=== PATIENT | female | born 1950 | race Caucasian/White ===

== ENCOUNTER 2025-01-07 20:48 | Observation (INO) | payer MEDICARE, SELFPAY ==
[2025-01-07 20:59] VITALS: PULSE 97; RESP 20; O2SAT 96; BMI 25.7
[2025-01-07 21:18] VITALS: BP 101/69; PULSE 104; RESP 18; TEMP 36.9; O2SAT 95
--- NOTE | 2025-01-07 21:35 | XR_ITS ---
Examination: CT abdomen and pelvis without contrast. Coronal 3-D reconstructions. Sagittal 2-D reconstructions. Date and time of exam:January 07, 2025 10:00 PM Indications: Abdominal pain and vomiting beginning this week. CTDI: vol (mGy): 6.60 DLP: (mGycm): 360 Technique: Axial images of the abdomen have been obtained, 3 mm slice thickness Intravenous contrast material has not been administered. Low dose protocols were performed. One or more of the following dose reduction techniques were used; automated exposure control, adjustment of the mA and/or KV according to patient size, use of iterative reconstruction technique. Findings: Large retrocardiac gastric hernia No visualized liver or splenic lesion No definite gallstones. No pancreatic or adrenal mass. No renal or ureteral calculi, no hydronephrosis Aortic calcification no aneurysmal dilatation. No pericecal inflammatory change. Multiple fluid distended small bowel loops in the lower abdomen with free fluid in the lower abdomen No pelvic mass Bladder intact Severe osteopenia with chronic compression L5 Impression: Small bowel obstruction pattern, consider Gastrografin small bowel series follow-up
--- NOTE | 2025-01-07 21:36 | PD.EDRME ---
Rapid Medical Screening Exam RME Arrival date/time: 01/07/25 20:48 This is a case of 74-year-old female who came into the emergency room due to abdominal pain nausea vomiting for 2 days patient was recently treated for UTI and started to Macrobid worsening symptoms this patient decided to sought consult here in the emergency room Chief Complaint: Nausea/Vomiting/Diarrhea Vital signs: Vital Signs Temperature 98.4 F 01/07/25 21:18 Pulse Rate 104 H 01/07/25 21:18 Respiratory Rate 18 01/07/25 21:18 Blood Pressure 101/69 01/07/25 21:18 Pulse Oximetry (%) 95 01/07/25 21:18 Oxygen Delivery Method Room Air 01/07/25 21:18
[2025-01-07 21:53] LABS: Basophils # (Auto) 0.1 Thou/mm3 (0.0-0.2); Basophils % (Auto) 0 % (0-2.5); Eosinophils # (Auto) 0.1 Thou/mm3 (0.0-0.5); Eosinophils % (Auto) 1 % (0-10); Hematocrit 35.7 % (36.0-46.0); Hemoglobin 11.9 g/dL (12.0-16.0); Immature Granulocytes Auto 0.08 Thou/mm3 (0.00-0.00); Lymphocytes # (Auto) 1.7 Thou/mm3 (1.0-4.8); Lymphocytes % (Auto) 12 % (10-50); Mean Corpuscular HGB Conc 33.3 g/dl (31.0-37.0); Mean Corpuscular Hemoglobin 28.1 pg (25.0-35.0); Mean Corpuscular Volume 84 fL (80-100); Monocytes # (Auto) 0.7 Thou/mm3 (0.0-0.8); Monocytes % (Auto) 5 % (0-12); Neutrophils # (Auto) 11.3 Thou/mm3 (1.8-7.7); Neutrophils % (Auto) 81 % (37-80); Nucleated Red Blood Cell # 0.00 Thou/mm3 (0.00-0.00); Nucleated Red Blood Cell % 0 /100 WBC (0); Platelet Count 308 Thou/mm3 (140-440); RDW Standard Deviation 42.2 fL (36.4-46.3); Red Blood Count 4.23 Miln/mm3 (4.00-5.20); White Blood Count 14.0 Thou/mm3 (3.6-11.0)
[2025-01-07 22:28] LABS: Alanine Aminotransferase < 7 U/L (10-49); Albumin, Serum 4.2 gm/dL (3.4-4.8); Albumin/Globulin Ratio 2.1 (1.2-2.2); Alkaline Phosphatase 60 U/L (46-116); Amylase 70 U/L (30-118); Anion Gap 11 (7-16); Aspartate Amino Transferase 13 U/L (0-34); BUN/Creatinine Ratio 18 Ratio (12-20); Bilirubin,Total 0.4 mg/dL (0.3-1.2); Blood Urea Nitrogen 20 mg/dL (9-23); Calcium 9.2 mg/dL (8.3-10.6); Calcium (Corrected) 9.2 mg/dL (8.5-10.1); Carbon Dioxide 26.0 mMol/L (20.0-31.0); Chloride 101 mMol/L (98-107); Creatinine (Component) 1.1 mg/dL (0.6-1.3); Estimated Creatinine Clearance 38.9 mL/min (>60); Globulin 2.0 gm/dL (2.3-3.5); Glucose 128 mg/dL (74-106); Osmolality,Calculated 280 (275-295); Potassium 3.4 mMol/L (3.4-5.1); Sodium 138 mMol/L (136-145); Total Protein 6.2 gm/dL (5.7-8.2); eGFR 53 See Note
[2025-01-07 23:26] VITALS: BP 99/47; PULSE 83; RESP 19; TEMP 36.6; O2SAT 99
--- NOTE | 2025-01-07 23:38 | EDNOTE_ITS ---
Nausea/Vomit./Diarrhea-RME/HPI General Chief complaint: Nausea/Vomiting/Diarrhea Stated complaint: VOMITTING Time Seen by Provider: 01/07/25 21:39 Arrival date/time: 01/07/25 20:48 RME / HPI RME / HPI Narrative: 01/07/25 20:48 This is a case of 74-year-old female who came into the emergency room due to abdominal pain nausea vomiting for 2 days patient was recently treated for UTI and started to Macrobid worsening symptoms this patient decided to sought consult here in the emergency room Dr. Tom?s Main ED Evaluation: 74yo female who was treated for UTI approx. 1 week [employer] who subsequently developed several bouts of nausea and vomiting that has been persistent throughout the week. No reported diarrhea and notes associated diffuse abdominal pain. Reported fever and chills. Reports resolution of dysuria while on antibiotics. PMH includes HTN, previous TIA. Denies DM or previous OK. Does report history of tachyarrhythmia. PSH includes hysterectomy. Nondrinker, nonsmoker, no illicit drug abuse. NKDA. Related Data Allergies Allergy/AdvReac Type Severity Reaction Status Date / Time BLOOD TRANSFUSION REACTION Allergy Unknown Uncoded 12/01/02 13:35 NKA Allergy Unknown Uncoded 12/01/02 13:35 No Known Allergies Allergy Uncoded 12/01/02 12:45 Review of Systems Review of Systems Systems Reviewed: All systems reviewed, normal except as documented Past Medical History Past Medical History NEUROLOGIC: Negative Neurological Disorders CARDIAC: Positive Hypertension; Negative Congestive Heart Failure RESPIRATORY: Negative Chronic Obstructive Pulmonary Disease (COPD) GASTROINTESTINAL: Negative Gastrointestinal Disorders GENITOURINARY: Negative Genitourinary Disorders or Renal Disease MUSCULOSKELETAL: Positive Osteoporosis ENDOCRINE: Negative Endocrine Disorders, Diabetes Mellitus Type 1 or Diabetes Mellitus Type 2 HEMATOLOGIC: Positive Anemia OTHER HISTORY: Negative Hospitalization, Autoimmune Disease, Down Syndrome, Developmental Delay, Shingles, Falls, Anesthesia Reactions or Cancer Surgical History SURGICAL: Positive Hysterectomy (total) Social History SMOKING STATUS: Never smoker ED Exam Narrative Physical exam: GENERAL APPEARANCE: alert and oriented x 4, well-developed, well-nourished, complains of generalized abdominal discomfort, in mild distress VITALS: All vitals were reviewed and the pulse ox is 99% on room air, which is normal according to my interpretation. HEENT: Normocephalic, atraumatic; pupils equal, round, reactive to light; EOMI; mucous membranes pink, moist; oropharynx clear NECK: Supple LUNGS: CTABL; no wheezes, no rales, no rhonchi HEART: Regular rate, regular rhythm; normal S1, S2; no murmurs ABDOMEN: non distended; no hypertympany; soft, mild diffuse tenderness, no guarding; no gross peritoneal findings BACK: no CVA tenderness EXTREMITIES: atraumatic; no edema NEUROLOGIC: awake; alert and oriented x4; cranial nerves II-XII grossly intact; no focal sensory or motor deficits PSYCHIATRIC: appropriate mood and affect SKIN: warm, dry, normal color; no rashes Course Quality Measures none Orders Category Date Time Status Admit to Inpatient Status Routine Admission 01/08/25 02:51 Active Patient Condition Routine Admission 01/08/25 02:51 Ordered Insert NG / OG tube NOW Care 01/08/25 00:13 Active NPO NOW Care 01/08/25 02:53 Active Notify provider NEEDED Care 01/08/25 02:51 Active Obtain weight NOW Care 01/08/25 02:51 Active Consult to General Surgery Stat Cons 01/08/25 02:53 Ordered Diet NPO (NOW) Diet 01/08/25 02:[address] abdomen pelvis wo con Stat Exams 01/07/25 21:35 Completed XR chest 1V post procedure Stat Exams 01/08/25 02:40 Taken Amylase Stat Lab 01/07/25 21:42 Completed CBC AM DRAW Lab 01/08/25 05:00 Ordered CBC AM DRAW Lab 01/09/25 05:00 Ordered CBC AM DRAW Lab 01/10/25 05:00 Ordered CBC AM DRAW Lab 01/11/25 05:00 Ordered CBC Stat Lab 01/07/25 21:42 Completed CMP [Comprehensive Metabolic Panel] AM DRAW Lab 01/08/25 05:00 Ordered CMP [Comprehensive Metabolic Panel] AM DRAW Lab 01/09/25 05:00 Ordered CMP [Comprehensive Metabolic Panel] AM DRAW Lab 01/10/25 05:00 Ordered CMP [Comprehensive Metabolic Panel] AM DRAW Lab 01/11/25 05:00 Ordered Comprehensive Metabolic Panel Stat Lab 01/07/25 21:42 Completed Magnesium AM DRAW Lab 01/08/25 05:00 Ordered Magnesium AM DRAW Lab 01/09/25 05:00 Ordered Magnesium AM DRAW Lab 01/10/25 05:00 Ordered Magnesium AM DRAW Lab 01/11/25 05:00 Ordered Phosphorous AM DRAW Lab 01/08/25 05:00 Ordered Phosphorous AM DRAW Lab 01/09/25 05:00 Ordered Phosphorous AM DRAW Lab 01/10/25 05:00 Ordered Phosphorous AM DRAW Lab 01/11/25 05:00 Ordered Urinalysis Stat Lab 01/08/25 00:27 Completed Acetaminophen Ivpb [Ofirmev Inj] Med 01/08/25 02:51 Active 1,000 mg in 100 ml IV Q6HR Acetaminophen Tab [Tylenol Tab] Med 01/08/25 02:51 Active 650 mg PO Q6H PRN Dextrose 5%-Ns [D5-Ns] 500 ml Med 01/08/25 03:00 Active IV 80 mls/hr Heparin Inj Med 01/08/25 09:00 Active 5,000 unit SC BID Lidocaine 2% Pf 5 ml [Xylocaine 2% Pf 5 ml] Med 01/08/25 00:30 Discontinued 8 ml INFL X1 ONE Morphine* Inj Med 01/08/25 02:51 Active 2 mg IVP Q6HR PRN Morphine* Inj Med 01/08/25 00:06 Discontinued 4 mg IVP X1 ONE Ondansetron Inj [Zofran Inj] Med 01/08/25 02:51 Active 4 mg IVP Q6H PRN Ondansetron Inj [Zofran Inj] Med 01/08/25 00:06 Discontinued 4 mg IVP X1 ONE Pantoprazole Inj [Protonix Inj] Med 01/08/25 09:00 Active 40 mg IVP QDAY Sodium Chloride 0.9% 1000 ml [Ns] 1,000 ml Med 01/08/25 00:06 Discontinued IV 999 mls/hr cefTRIAXone/D5w 1gm IV premix [Rocephin/D5w 1gm IV Med 01/08/25 00:50 Discontinued premix] 1 gm in 50 ml IV X1 Code Status Routine Oth 01/08/25 02:51 Ordered Vital Signs Vital signs: Vital Signs Temperature 98.4 F 01/07/25 21:18 Pulse Rate 104 H 01/07/25 21:18 Respiratory Rate 18 01/07/25 21:18 Blood Pressure 101/69 01/07/25 21:18 Pulse Oximetry (%) 95 01/07/25 21:18 Oxygen Delivery Method Room Air 01/07/25 21:18 Nausea/Vomiting/Diarrhea MDM Narrative MDM Narrative:: Scribe Attestation: 01/07/25 Ria Dixon am scribing for and in the presence of Dr. Tom. 74yo female who was treated for UTI approx. 1 week [employer] who subsequently developed several bouts of nausea and vomiting that has been persistent throughout the week. No reported diarrhea and notes associated diffuse abdominal pain. Please see PE findings. Lab markers demonstrated elevated WBC count 14, mild anemia Hgb 11.9, slight left shift without bandemia. Chemistries demonstrate slightly reduced eGFR 53. Patient placed on secured entrance monitor, notably mildly hypotensive upon arrival, hydrated with normal saline, and given low dose narcotic analgesics/antiemetics with [id number] clinical improvement. Patient referred for CT abdomen pelvis, which demonstrated multiple fluid distended small bowel loops consistent with small bowel obstruction. Patient underwent NG tube placement after nebulized lidocaine treatment. Hospitalist was consulted for admission. Dx: SBO, UTI Patient data External records reviewed:: [facility] previous records (Per chart review, patient has no relevant previous ED visits.) Clinical information provided by:: patient Social determinants that could affect healthcare access:: none Patient has the following chronic illnesses:: HTN How is presenting disease/condition affected by chronic disease/condition?: uneffected by Evaluation data The following diagnostics were reviewed and interpreted by me:: lab results and radiology exam(s) Lab and/or radiology exams considered but not ordered:: none Interpretation Summary: [facility] Report Signed Patient: LUIS ALBERTO VILLALOBOS Record#: [id number] Birthdate: 1950 Age/Sex: 74 / F Location: [facility] Attending Dr: Ordering Physician: Bria Vargas Date of Service: 01/07/25 Procedure(s): CT abdomen pelvis wo con Accession Number(s): [id number] cc: Kaden Le MD; Antonio Farmer MD; Bria Vargas~ Examination: CT abdomen and pelvis without contrast. Coronal 3-D reconstructions. Sagittal 2-D reconstructions. Date and time of exam:January 07, 2025 10:00 PM Indications: Abdominal pain and vomiting beginning this week. CTDI: vol (mGy): 6.60 DLP: (mGycm): 360 Technique: Axial images of the abdomen have been obtained, 3 mm slice thickness Intravenous contrast material has not been administered. Low dose protocols were performed. One or more of the following dose reduction techniques were used; automated exposure control, adjustment of the mA and/or KV according to patient size, use of iterative reconstruction technique. Findings: Large retrocardiac gastric hernia No visualized liver or splenic lesion No definite gallstones. No pancreatic or adrenal mass. No renal or ureteral calculi, no hydronephrosis Aortic calcification no aneurysmal dilatation. No pericecal inflammatory change. Multiple fluid distended small bowel loops in the lower abdomen with free fluid in the lower abdomen No pelvic mass Bladder intact Severe osteopenia with chronic compression L5 Impression: Small bowel obstruction pattern, consider Gastrografin small bowel series follow-up Dictated By: Antonio Farmer MD Signed By: <Electronically signed by Antonio Farmer MD in OV> 01/07/25 4733 Medications / Prescriptions Medications / Prescriptions considered but not ordered:: none Medication administrations:: Medication Administration History Acetaminophen (Acetaminophen 325 Mg Tablet) 650 mg PO Q6H PRN PRN Reason: Fever >100.4 Stop: 02/07/25 02:50 Heparin Sodium (Porcine) (Heparin Sod Inj 5000 Unit/Ml Vial) 5,000 unit SC BID [facility] Stop: 01/22/25 08:59 Acetaminophen (Ofirmev Inj) 1,000 mg in 100 mls @ 250 mls/hr IV Q6HR PRN PRN Reason: Fever >100.4 or Pain 1-3 Dextrose/Sodium Chloride (D5-Ns) 500 mls @ 80 mls/hr IV .Q6H15M [facility] Stop: 02/07/25 02:59 Morphine Sulfate (Morphine Sulf Inj 4 Mg/Ml Vial) 2 mg IVP Q6HR PRN PRN Reason: Pain 4-10 Stop: 01/13/25 02:50 Ondansetron HCl (Ondansetron Inj 2 Mg/Ml Inj 2 Ml) 4 mg IVP Q6H PRN; Protocol PRN Reason: NAUSEA OR VOMITING Stop: 02/07/25 02:50 Pantoprazole Sodium (Pantoprazole Inj 40 Mg Vial) 40 mg IVP QDAY [facility] Stop: 02/07/25 08:59 Discontinued Medications Sodium Chloride (Ns) 1,000 mls @ 999 mls/hr IV .Q1H1M ONE Stop: 01/08/25 01:06 Last Admin: 01/08/25 01:50 Dose: 999 mls/hr Documented By: JOY Ceftriaxone Sodium/Dextrose (Rocephin/D5w 1gm Iv Premix) 1 gm in 50 mls @ 100 mls/hr IV X1 ONE Stop: 01/08/25 01:19 Last Admin: 01/08/25 02:05 Dose: 100 mls/hr Documented By: JOY Lidocaine HCl (Lidocaine Inj Pf 2% 5 Ml Vial) 8 ml INFL X1 ONE Stop: 01/08/25 00:31 Last Admin: 01/08/25 01:04 Dose: 8 ml Documented By: JOY Morphine Sulfate (Morphine Sulf Inj 4 Mg/Ml Vial) 4 mg IVP X1 ONE Stop: 01/08/25 00:07 Last Admin: 01/08/25 01:52 Dose: 4 mg Documented By: JOY Ondansetron HCl (Ondansetron Inj 2 Mg/Ml Inj 2 Ml) 4 mg IVP X1 ONE; Protocol Stop: 01/08/25 00:07 Last Admin: 01/08/25 01:51 Dose: 4 mg Documented By: JOY see above Consultations Consultation(s) initiated? (list below): Yes Consultation #1 (Physician, Specialty, Details): Discussed case with the resident physician, attending Dr. Means from Hospitalist service regarding admission. Discussed patients ED course, exam findings, labs, and radiology results. The Hospitalist agrees to accept the patient for admission. Time: 00:48 Diagnosis Nausea Differential Diagnosis: food poisoning, gastroenteritis, drug-induced nausea and vomiting, dehydration and other (SBO, ileus, electrolyte abnormality) Most likely diagnosis given after review of the tests above:: see clinical impression below Admission Indicated Admission indicated?: indicated Admission Request Was there a request for admission?: Yes Admission Attestation Admission request attestation: Discussed case with [] from Hospitalist service regarding admission. Discussed patients ED course, exam findings, labs, and radiology results. The Hospitalist [agrees,declines] to accept the patient for admission. Disposition Plan Disposition Plan: Admit Discharge Plan Plan Patient Disposition: Admit Acute Care w/in Hospital Prescriptions/Referrals Referrals: Kaden Le MD [Primary Care Provider, Family Practice] - In 1 week Problem List Clinical Impression: Small bowel obstruction, UTI (urinary tract infection) Patient/Caregiver Discharge Instructions Print Language: Venezuelan Stand Alone Forms: [employer] Award Info., Patient Portal Info Letter
[2025-01-08] VITALS (9 sets, daily range): BP systolic 94–117; BP diastolic 56–68; PULSE 70–82; RESP 16–19; TEMP 36.3–36.9; O2SAT 95–100; BMI 25.9
[2025-01-08 00:30] LABS: Collection Type, Urine Clean Catch
[2025-01-08 00:44] LABS: Amorphous Crystals,Urine Present (Absent); Bacteria,Urine Rare; Bilirubin,Urine Negative (Negative); Blood,Urine Negative (Negative); Clarity,Urine Turbid (Clear/Hazy); Color,Urine Yellow (Lt Yel-Yel); Glucose, Urine Negative (Negative); Hyaline Casts,Urine 2 /hpf (0-1); Ketones,Urine Negative (Negative); Leukocyte Esterase,Urine Positive (Negative); Nitrite,Urine Negative (Negative); PH,Urine 5.5 (5.0-7.0); Protein,Urine Trace (Neg - Trace); RBC,Urine 15 /hpf (0-3); Specific Gravity,Urine 1.021 (1.001-1.035); Squamous Epithelial Cell,Urine 6 /hpf (0-5); Urobilinogen,Urine Negative mg/dL (0.0-1.0); WBC,Urine 127 /hpf (0-5)
[2025-01-08] MEDS: LIDOCAINE INJ PF 2% 5 ML VIAL 8 ML INFL (01:04)
[2025-01-08] MEDS: SODIUM CHLORIDE 0.9% 1000 ML 1,000 ML 999 ML IV (01:50)
[2025-01-08] MEDS: ONDANSETRON INJ 2 MG/ML INJ 2 ML 4 MG IVP (01:51)
[2025-01-08] MEDS: MORPHINE SULF INJ 4 MG/ML VIAL IVP (01:52)
[2025-01-08] MEDS: cefTRIAXone/D5w 1gm IV premix 1 GM/50 ML BAG IV (02:05)
--- NOTE | 2025-01-08 02:40 | XR_ITS ---
Examination: AP chest single view Technique one AP portable upright chest single view Date and time: January 08, 2025, 0248 hrs. Indications: Orogastric tube placement today. Findings: Orogastric tube sidehole is just beyond the GE junction Normal heart size Atelectasis in the left lower lobe, mild No pneumonia or pulmonary edema Impression: Advance the orogastric tube 4 cm
--- NOTE | 2025-01-08 02:56 | ESHP_ITS ---
Documentation for date of: 01/08/25 [facility] History of Present Illness History of present illness: This is a 74-year-old female with PMHx of HTN, tachycardia, HLD, osteoporosis, chronic anemia, severe endometriosis s/p oophorectomy and hysterectomy, presented to ED with abdominal pain. Symptoms started 2 days ago, with gradual onset abdominal distention, and abdominal pain. She states over the last week she has been dehydrated, not drinking as much fluids as possible. Over the last 2 days she has several episode of vomiting stomach content, nonbloody. In addition to nonbloody, brown diarrhea this morning. And has been unable to tolerate oral intake over the last few days. She was treated for UTI recently, completed a full course of ANTIBIOTICS. Currently asymptomatic without dysuria or urinary urgency or frequency. Currently denies headache, fever, chills, fall or trauma, chest pain, shortness of breath, palpitation, generalized weakness, or urinary symptoms. She has a distant history of oophorectomy followed by hysterectomy secondary to endometriosis and incidental appendectomy. Past Medical History: * As above. Past Surgical History: * Oophorectomy, appendectomy, hysterectomy. Medications: * METOPROLOL, tartrate 50 mg daily, LOSARTAN ? HYDROCHLOROTHIAZIDE 200-125 mg daily, SIMVASTATIN 20 mg daily. Allergies: * Allergy to blood transfusions (severe weakness) Family History: * Noncontributory. Social History: * , lives with her boyfriend. Had 2 children through natural . * Occasional alcohol use, denies drug or tobacco use. ED Course: * Afebrile, BP 101/69, HR 104, satting well on room air. * WBC 14, CBC 11.9 around baseline, PLT 308. * CHEM panel remarkable for GFR 53, creatinine 1.1, BUN 20, GLUCOSE 128. * Normal liver function, electrolyte. * CT abdomen showed small bowel obstruction better. Reason for admission: Refractory nausea and vomiting secondary to SBO, requiring admission for decompression followed by GASTROGRAFIN study. Exam Vital Signs Temp Pulse Resp BP Pulse Ox O2 Del Method 98.2 F 77 18 117/63 95 Room Air 01/08/25 02:13 01/08/25 02:13 01/08/25 02:13 01/08/25 02:13 01/08/25 02:13 09/13/25 23:26 Narrative Exam GENERAL * Normal appearing female, in mild distress secondary to nausea and vomiting. HEENT * NCAT.?DIMAS. Oral mucosa is moist. Patent Nares NECK * Supple, nontender, no JVD. CHEST * RRR, no m/g/r * CTAB, no w/r/r, symmetrical expansion. ABDOMEN * Soft, mildly distended, mildly tender throughout. * No guarding/rebound tenderness/masses. * Bowel sounds presents EXTREMITIES * No edema/cyanosis.? SKIN * Warm and dry, no jaundice/rashes. NEUROMUSCULAR * No lumbar or midline, no CVA, no paraspinal muscle spasm or tenderness. * Moves all 4 extremities well, with full ROM and good CSM. * GARCIA x4, CN II-XII grossly intact. * No focal neurologic deficits. PSYCHIATRY * Normal mood and affect, cooperative, no SI or HI or hallucinations Results: Labs 01/08/25 04:35 01/08/25 04:35 Labs: Short CBC 01/07/25 Range/Units 21:42 WBC 14.0 H (3.6-11.0) Thou/mm3 Hgb 11.9 L (12.0-16.0) g/dL Hct 35.7 L (36.0-46.0) % Plt Count 308 (140-440) Thou/mm3 BMP 01/07/25 21:42 Sodium 138 Potassium 3.4 Chloride 101 Carbon Dioxide 26.0 BUN 20 Creatinine 1.1 Glucose 128 H Calcium 9.2 Liver Function 01/07/25 Range/Units 21:42 Total Bilirubin 0.4 (0.3-1.2) mg/dL AST 13 (0-34) U/L ALT < 7 L (10-49) U/L Alkaline Phosphatase 60 (46-116) U/L Albumin 4.2 (3.4-4.8) gm/dL Urine 01/08/25 Range/Units 00:27 Urine Color Yellow (Lt Yel-Yel) Urine Clarity Turbid A (Clear/Hazy) Urine pH 5.5 (5.0-7.0) Ur Specific [place] 1.021 (1.001-1.035) Urine Protein Trace (Neg - Trace) Urine Glucose (UA) Negative (Negative) Quality Measures Quality Measures none Advance care planning discussed with:: patient Medications Home Medications and Allergies Allergies Allergy/AdvReac Type Severity Reaction Status Date / Time BLOOD TRANSFUSION REACTION Allergy Unknown Uncoded 12/01/02 13:35 NKA Allergy Unknown Uncoded 12/01/02 13:35 No Known Allergies Allergy Uncoded 12/01/02 12:45 Visit Medications Acetaminophen (Acetaminophen 325 Mg Tablet) 650 mg PO Q6H PRN PRN Reason: Fever >100.4 Stop: 02/07/25 02:50 Heparin Sodium (Porcine) (Heparin Sod Inj 5000 Unit/Ml Vial) 5,000 unit SC BID [facility] Stop: 01/22/25 08:59 Acetaminophen (Ofirmev Inj) 1,000 mg in 100 mls @ 250 mls/hr IV Q6HR PRN PRN Reason: Fever >100.4 or Pain 1-4 Dextrose/Sodium Chloride (D5-Ns) 500 mls @ 80 mls/hr IV .Q6H15M [facility] Stop: 02/07/25 02:59 Morphine Sulfate (Morphine Sulf Inj 4 Mg/Ml Vial) 2 mg IVP Q6HR PRN PRN Reason: Pain 4-10 Stop: 01/13/25 02:50 Ondansetron HCl (Ondansetron Inj 2 Mg/Ml Inj 2 Ml) 4 mg IVP Q6H PRN; Protocol PRN Reason: NAUSEA OR VOMITING Stop: 02/07/25 02:50 Pantoprazole Sodium (Pantoprazole Inj 40 Mg Vial) 40 mg IVP QDAY [facility] Stop: 02/07/25 08:59 Discontinued Medications Sodium Chloride (Ns) 1,000 mls @ 999 mls/hr IV .Q1H1M ONE Stop: 01/08/25 01:06 Last Admin: 01/08/25 01:50 Dose: 999 mls/hr Ceftriaxone Sodium/Dextrose (Rocephin/D5w 1gm Iv Premix) 1 gm in 50 mls @ 100 mls/hr IV X1 ONE Stop: 01/08/25 01:19 Last Admin: 01/08/25 02:05 Dose: 100 mls/hr Lidocaine HCl (Lidocaine Inj Pf 2% 5 Ml Vial) 8 ml INFL X1 ONE Stop: 01/08/25 00:31 Last Admin: 01/08/25 01:04 Dose: 8 ml Morphine Sulfate (Morphine Sulf Inj 4 Mg/Ml Vial) 4 mg IVP X1 ONE Stop: 01/08/25 00:07 Last Admin: 01/08/25 01:52 Dose: 4 mg Ondansetron HCl (Ondansetron Inj 2 Mg/Ml Inj 2 Ml) 4 mg IVP X1 ONE; Protocol Stop: 01/08/25 00:07 Last Admin: 01/08/25 01:51 Dose: 4 mg Assessment & Plan Plan This is a 74-year-old female with PMHx of HTN, tachycardia, HLD, osteoporosis, chronic anemia, severe endometriosis s/p oophorectomy and hysterectomy, presented to ED with abdominal pain, admitted for SBO. Small bowel obstruction Intractable N/V/ Abdominal pain Presents with 2 days of abdominal pain, nausea, vomiting. Had mild distention and diffuse mild tenderness of the abdomen on exam. Previous similar episodes. Last bowel movement was this morning and was watery, brown, nonbloody. CT showed SBO. WBC 14, likely reactive. No signs or symptoms of bowel ischemia. Continues to feel nauseous despite ANTIEMETICS. Will start with decompression, allow some time before GASTROGRAFIN study. ? Bowel rest ? NGT intermittent low suction ? GASTROGRAFIN to start at 11:00 AM ? General Surgery consulted ? Continue D5-NS maintenance at 80 cc/or HTN Tachycardia HLD History above, managed with home meds. Currently normotensive, HR within normal limits. ? Resume oral home meds when able Chronic anemia Hgb 11.9 around baseline. She takes folate and iron supplements daily. Has severe allergic reaction to blood transfusion, with generalized weakness. ? Resume home medication on discharge ? Do not anticipate need for transfusion at this time ? Daily labs Complicated UTI Treated for UTI, occasional dysuria with urgency. UA noted for WBCs seen in UA, will administer another dose of ANTIBIOTICS. - Completed outpatient po Nitrufurantoin ? Received 1 dose of CEFTRIAXONE in ED ? Will give one-time CEFTRIAXONE tomorrow CKD stage IIIa Admission GFR 53 oh, around baseline. Creatinine 1.1, BUN 20. Currently does not have a PCP, not following with [facility], denies history of renal failure. ? Renally dose meds, avoid overdiuresis and NEPHROTOXINS ? Daily CMP ? Recommended outpatient follow-up Stated Currently Does Not Have a PCP, Recommended Following up with One of the Residents at the [facility]. Please Provide Contact Information on Discharge. Health maintenance Diet: NPO GI prophylaxis: PROTONIX DVT prophylaxis: HEPARIN subcu Antibiotics: CEFTRIAXONE CODE STATUS: Full code Disposition: Admitted for SBO Case was discussed with attending physician. Antoni Dang DO PGY II This document was transcribed using voice recognition technology. Minor inaccuracies may be present. Attending Provider Attestation/Addendum After examination of the patient and review of the clinical data I feel that this patient needs admission to the hospital for further treatment/evaluation. Plan of care discussed with patient and is in agreement. I Angeles Means MD, attest that I was physically present for hernandez portions of evaluation, and examined patient, labs and imagings and plan of care were discussed with IM residents team, and I agree with the findings and plans documented above.
[2025-01-08 05:16] LABS: Basophils # (Auto) 0.0 Thou/mm3 (0.0-0.2); Basophils % (Auto) 0 % (0-2.5); Eosinophils # (Auto) 0.1 Thou/mm3 (0.0-0.5); Eosinophils % (Auto) 0 % (0-10); Hematocrit 31.5 % (36.0-46.0); Hemoglobin 10.1 g/dL (12.0-16.0); Immature Granulocytes Auto 0.10 Thou/mm3 (0.00-0.00); Lymphocytes # (Auto) 1.8 Thou/mm3 (1.0-4.8); Lymphocytes % (Auto) 15 % (10-50); Mean Corpuscular HGB Conc 32.1 g/dl (31.0-37.0); Mean Corpuscular Hemoglobin 27.9 pg (25.0-35.0); Mean Corpuscular Volume 87 fL (80-100); Monocytes # (Auto) 0.8 Thou/mm3 (0.0-0.8); Monocytes % (Auto) 6 % (0-12); Neutrophils # (Auto) 9.5 Thou/mm3 (1.8-7.7); Neutrophils % (Auto) 78 % (37-80); Nucleated Red Blood Cell # 0.00 Thou/mm3 (0.00-0.00); Nucleated Red Blood Cell % 0 /100 WBC (0); Platelet Count 272 Thou/mm3 (140-440); RDW Standard Deviation 43.9 fL (36.4-46.3); Red Blood Count 3.62 Miln/mm3 (4.00-5.20); White Blood Count 12.2 Thou/mm3 (3.6-11.0)
[2025-01-08] MEDS: DEXTROSE 5%-NS 500 ML 80 ML IV (05:42)
[2025-01-08 05:56] LABS: Alanine Aminotransferase < 7 U/L (10-49); Albumin, Serum 3.6 gm/dL (3.4-4.8); Albumin/Globulin Ratio 1.9 (1.2-2.2); Alkaline Phosphatase 53 U/L (46-116); Anion Gap 9 (7-16); Aspartate Amino Transferase 10 U/L (0-34); BUN/Creatinine Ratio 20 Ratio (12-20); Bilirubin,Total 0.3 mg/dL (0.3-1.2); Blood Urea Nitrogen 24 mg/dL (9-23); Calcium 8.5 mg/dL (8.3-10.6); Calcium (Corrected) 8.8 mg/dL (8.5-10.1); Carbon Dioxide 28.0 mMol/L (20.0-31.0); Chloride 103 mMol/L (98-107); Creatinine (Component) 1.2 mg/dL (0.6-1.3); Estimated Creatinine Clearance 35.8 mL/min (>60); Globulin 1.9 gm/dL (2.3-3.5); Glucose 113 mg/dL (74-106); Magnesium 2.0 mg/dL (1.6-2.6); Osmolality,Calculated 284 (275-295); Phosphorous 4.3 mg/dL (2.4-5.1); Potassium 3.8 mMol/L (3.4-5.1); Sodium 140 mMol/L (136-145); Total Protein 5.5 gm/dL (5.7-8.2); eGFR 48 See Note
--- NOTE | 2025-01-08 06:57 | PC.NURSE ---
called 2x to let them know that pt was asking fro ice chips/sip of water but was unable to get a hold from .
--- NOTE | 2025-01-08 08:00 | XR_ITS ---
Examination: Small bowel series 2 views Technique: AP supine abdomen 1 minute, 1 hour post administration 120 cc Gastrografin Date and time: January 08, 2025, 11:00 AM Indications: Abdominal distention this week Findings: Contrast is present in the colon on the 1 hour film Impression: Negative for small bowel obstruction. No further films are needed.
--- NOTE | 2025-01-08 08:23 | XR_ITS ---
Examination: AP chest single view Technique: Portable AP sitting chest single view Date and time: January 08, 2025, 0828 hrs., Comparison January 08, 2025 0248 hrs. Indications: Reposition orogastric tube. Findings: Orogastric tube tip in the stomach satisfactory position. No significant cardiac enlargement. No aspiration pneumonia. Impression: Orogastric tube tip in the stomach satisfactory position
--- NOTE | 2025-01-08 09:18 | PC.SS ---
Addendum entered by Jocy Weber 01/08/25 14:59: Rounding note: Small bowel series started, NGT tube placed. Will discharge home when medically clear. Original Note: Patient is a 74 White female, reason for visit: SBO. SS met with patient at bedside to complete initial assessment. Role and purpose of today's contact was explained. Patient confirmed her demographic information. Patient stated her primary medical surrogate is her sibling, Kayli Pereira [phone]. Patient explained prior to hospitalization she was independent with both ADLs and ambulation. [facility]. PCP: SONJA, last appt. was 01/03/25. Discharge plan discussed with patient, she is requesting to discharge home when medically clear. Next of kin: Sibling Kayli Pereira [phone] Discharge plan: Home, family to transport.
[2025-01-08] MEDS: HEPARIN SOD INJ 5000 UNIT/ML VIAL SC (09:54)
--- NOTE | 2025-01-08 13:01 | ESPR_ITS ---
<Statement entered by Floyd Shepard MD - 01/08/25 13:12> Overnight admission for SBO. States that last BM was approximately two days ago and symptoms started after she started taking nitrofurantoin for UTI. Denies any nausea or vomiting at this time and has been passing gas since this morning. Small bowel series started and will continue to follow and NGT tube placed. ----- Note reviewed and agree with care plan as documented. Please refer to the note below for further details. Plan discussed with attending physician Dr. Cony Shepard MD PGY-2 Internal Medicine Documentation for date of: 01/08/25 Subjective Subjective Interval history: Patient was seen and examined at bedside. No acute events took place overnight. Patient states that she typically has 3-4 bowel movements daily. However she has not had a bowel movement since yesterday when it was a diarrhea. She complains of pain across her upper abdomen she had vomited prior to presentation to the ED. She completed her course of antibiotics for UTI yesterday. Exam Vital Signs Temp Pulse Resp BP Pulse Ox O2 Del Method 97.5 F 70 19 99/56 L 97 Room Air 01/08/25 08:00 01/08/25 08:00 01/08/25 08:00 01/08/25 08:00 01/08/25 08:00 01/08/25 08:00 Narrative Exam GENERAL * Normal appearing female, in mild distress secondary to nausea and vomiting. HEENT * NCAT. DIMAS. Oral mucosa is moist. Patent Nares NECK * Supple, nontender, no JVD. CHEST * RRR, no m/g/r * CTAB, no w/r/r, symmetrical expansion. ABDOMEN * Soft, mildly distended, mildly tender throughout. * No guarding/rebound tenderness/masses. * Bowel sounds presents EXTREMITIES * No edema/cyanosis.? SKIN * Warm and dry, no jaundice/rashes. NEUROMUSCULAR * No lumbar or midline, no CVA, no paraspinal muscle spasm or tenderness. * Moves all 4 extremities well, with full ROM and good CSM. * GARCIA x4, CN II-XII grossly intact. * No focal neurologic deficits. PSYCHIATRY * Normal mood and affect, cooperative, no SI or HI or hallucinations Objective Labs 01/09/25 04:46 01/09/25 04:46 Labs: Laboratory Results - last 24 hr 01/07/25 01/08/25 01/08/25 21:42 00:27 04:35 WBC 14.0 H 12.2 H RBC 4.23 3.62 L Hgb 11.9 L 10.1 L Hct 35.7 L 31.5 L MCV 84 87 MCH 28.1 27.9 MCHC 33.3 32.1 RDW Std Deviation 42.2 43.9 Plt Count 308 272 D Neut % (Auto) 81 H 78 Lymph % (Auto) 12 15 [place] % (Auto) 5 6 Eos % (Auto) 1 0 Baso % (Auto) 0 0 Neut # (Auto) 11.3 H 9.5 H Lymph # (Auto) 1.7 1.8 [place] # (Auto) 0.7 0.8 Eos # (Auto) 0.1 0.1 Baso # (Auto) 0.1 0.0 Immature Gran # (Auto) 0.08 H 0.10 H Absolute Nucleated RBC 0.00 0.00 Immature Gran % 1 H 1 H Nucleated RBC % 0 0 Sodium 138 140 Potassium 3.4 3.8 Chloride 101 103 Carbon Dioxide 26.0 28.0 Anion Gap 11 9 BUN 20 24 H Creatinine 1.1 1.2 Estim Creat Clear Calc 38.9 L 35.8 L eGFR 53 L 48 L BUN/Creatinine Ratio 18 20 Glucose 128 H 113 H Calculated Osmolality 280 284 Calcium 9.2 8.5 Corrected Calcium 9.2 8.8 Phosphorus 4.3 Magnesium 2.0 Total Bilirubin 0.4 0.3 AST 13 10 ALT < 7 L < 7 L Alkaline Phosphatase 60 53 Total Protein 6.2 5.5 L Albumin 4.2 3.6 D Globulin 2.0 L 1.9 L Albumin/Globulin Ratio 2.1 1.9 Amylase 70 Ur Collection Type Clean Catch Urine Color Yellow Urine Clarity Turbid A Urine pH 5.5 Ur Specific [place] 1.021 Urine Protein Trace Urine Glucose (UA) Negative Urine Ketones Negative Urine Blood Negative Urine Nitrite Negative Urine Bilirubin Negative Urine Urobilinogen (Auto) Negative Ur Leukocyte Esterase Positive Urine RBC 15 H Urine WBC 127 H Ur Squamous Epith Cells 6 H Amorphous Crystals Present A Urine Bacteria Rare Hyaline Casts 2 H Quality Measures Quality Measures none Advance care planning discussed with:: patient Assessment & Plan Assessment Current Active Medications: Generic Name Dose Route Start Last Admin Trade Name Freq PRN Reason Stop Dose Admin Acetaminophen 650 mg 01/08/25 02:51 Acetaminophen 325 Mg Tablet PO 02/07/25 02:50 On Hold: 01/08/25 10:29 Q6H PRN Resume: 01/09/25 03:00 Fever >100.4 Comment: IV APA ACTIVE Heparin Sodium (Porcine) 5,000 unit 01/08/25 09:00 01/08/25 09:54 Heparin Sod Inj 5000 Unit/Ml Vial SC 01/22/25 08:59 5,000 unit BID SHEILA Administration Acetaminophen 1,000 mg in 100 mls @ 250 mls/hr 01/08/25 02:51 Ofirmev Inj IV 01/09/25 02:50 Q6HR PRN Fever >100.4 or Pain 1-3 Dextrose/Sodium Chloride 500 mls @ 80 mls/hr 01/08/25 05:45 01/08/25 05:42 D5-Ns IV 02/07/25 05:44 80 mls/hr .Q6H15M SHEILA Administration Morphine Sulfate 2 mg 01/08/25 02:51 Morphine Sulf Inj 4 Mg/Ml Vial IVP 01/13/25 02:50 Q6HR PRN Pain 4-10 Ondansetron HCl 4 mg 01/08/25 02:51 Ondansetron Inj 2 Mg/Ml Inj 2 Ml IVP 02/07/25 02:50 Q6H PRN NAUSEA OR VOMITING Protocol Pantoprazole Sodium 40 mg 01/08/25 09:00 01/08/25 09:54 Pantoprazole Inj 40 Mg Vial IVP 02/07/25 08:59 40 mg QDAY SHEILA Administration Plan 74-year-old female with PMHx of HTN, tachycardia, HLD, osteoporosis, chronic anemia, severe endometriosis s/p oophorectomy and hysterectomy, presented to ED on 01/07/2025 with abdominal pain, distention, nonbloody emesis, and diarrhea for the previous 2 days. Admitted for SBO, as evident on initial CTAP. On hospital day 1 (01/08) small bowel series showed contrast present in the colon on the 1 hour film indicating resolution of SBO. NGT was discharged, patient was offered liquid diet for lunch, full liquid for dinner, and dysphagia 2 (mechanically altered) for the following morning with close observation of symptoms. Despite reported completion of nitrofurantoin ABX treatment for previous UTI, patient continued to have occasional dysuria with urgency. New urine culture ordered. Intractable N/V/ Abdominal pain Small bowel obstruction, resolved Presents with 2 days of abdominal pain, nausea, vomiting. Had mild distention and diffuse mild tenderness of the abdomen on exam. Previous similar episodes. Last bowel movement was this morning and was watery, brown, nonbloody. CT showed SBO. WBC 14, likely reactive. No signs or symptoms of bowel ischemia. Continues to feel nauseous despite ANTIEMETICS. Will start with decompression, allow some time before GASTROGRAFIN study. 01/08 small bowel series showed contrast present in the colon on the 1 hour film indicating resolution of SBO. ? DC?ed NGT intermittent low suction ? DC?ed D5-NS maintenance at 80 cc/or ? Clear liquid diet for lunch, advance to full at dinner and dysphagia 2 (mechanically altered) for the breakfast 01/09 ? General Surgery consulted HTN Tachycardia HLD History above, managed with home meds. Currently normotensive, HR within normal limits. ? Resume oral home meds when able Chronic anemia Hgb 10.1 around baseline. She takes folate and iron supplements daily. Has severe allergic reaction to blood transfusion, with generalized weakness. ? Resume home medication on discharge ? Do not anticipate need for transfusion at this time ? Daily labs Complicated UTI Treated for UTI, occasional dysuria with urgency. UA noted for WBCs seen in UA. - urine culture ordered - Completed outpatient po Nitrufurantoin ? Received 1 dose of CEFTRIAXONE in ED and another dose on floors CKD stage IIIa GFR 48, around baseline. Creatinine 1.2, BUN 24. 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 ? Renally dose meds, avoid overdiuresis and NEPHROTOXINS ? Daily CMP ? Recommended outpatient follow-up Health Maintenance: Disposition: Med Surg, monitored for tolerance to advancing diet. Anticipate discharge within the next 24h. Diet: full liquid PPx DVT: SCD PPx GI: IV Protonix 40mg QD Code Status: full Attending Provider Attestation/Addendum Rhina Hernandez DO, attest that I was physically present for the hernandez portions of the service and evaluated the patient with the resident and I reviewed and discussed the case with the resident and agree with the resident's findings and plans of care as documented above Patient seen and evaluated this AM. Patient stated that she was recently treated with Macrobid outpatient for UTI. UA shows some pyuria, but was a clean catch and could be contaminated. She reported that she began to have lower abdominal pain/ soreness yesterday that involves suprapubic region that prompted her to come to ED. she received one dose of rocephin upon admission and reports improvement of pain, but denies any dysuria. She states she may have been dehydrated as the macrobid made her nauseous. Will hold off on abx at this time and collect Ucx. If positive, can treat with PO abx. Pending gastrograffin small bowel follow through at this time. Will f/u imaging. If SBO resolves, may be able to advance diet. Patient reports being able to pass some gas.
[2025-01-09 04:00] VITALS: BP 112/69; PULSE 77; RESP 17; TEMP 36.4; O2SAT 99
[2025-01-09 05:19] LABS: Basophils # (Auto) 0.0 Thou/mm3 (0.0-0.2); Basophils % (Auto) 1 % (0-2.5); Eosinophils # (Auto) 0.2 Thou/mm3 (0.0-0.5); Eosinophils % (Auto) 3 % (0-10); Hematocrit 28.6 % (36.0-46.0); Hemoglobin 9.1 g/dL (12.0-16.0); Immature Granulocytes Auto 0.04 Thou/mm3 (0.00-0.00); Lymphocytes # (Auto) 1.2 Thou/mm3 (1.0-4.8); Lymphocytes % (Auto) 17 % (10-50); Mean Corpuscular HGB Conc 31.8 g/dl (31.0-37.0); Mean Corpuscular Hemoglobin 27.9 pg (25.0-35.0); Mean Corpuscular Volume 88 fL (80-100); Monocytes # (Auto) 0.5 Thou/mm3 (0.0-0.8); Monocytes % (Auto) 8 % (0-12); Neutrophils # (Auto) 5.0 Thou/mm3 (1.8-7.7); Neutrophils % (Auto) 72 % (37-80); Nucleated Red Blood Cell # 0.00 Thou/mm3 (0.00-0.00); Nucleated Red Blood Cell % 0 /100 WBC (0); Platelet Count 230 Thou/mm3 (140-440); RDW Standard Deviation 44.6 fL (36.4-46.3); Red Blood Count 3.26 Miln/mm3 (4.00-5.20); White Blood Count 6.9 Thou/mm3 (3.6-11.0)
[2025-01-09 05:39] LABS: Anion Gap 9 (7-16); BUN/Creatinine Ratio 12 Ratio (12-20); Blood Urea Nitrogen 11 mg/dL (9-23); Calcium 8.7 mg/dL (8.3-10.6); Carbon Dioxide 27.3 mMol/L (20.0-31.0); Chloride 108 mMol/L (98-107); Creatinine (Component) 0.9 mg/dL (0.6-1.3); Estimated Creatinine Clearance 47.8 mL/min (>60); Glucose 95 mg/dL (74-106); Magnesium 2.2 mg/dL (1.6-2.6); Osmolality,Calculated 286 (275-295); Phosphorous 2.4 mg/dL (2.4-5.1); Potassium 3.5 mMol/L (3.4-5.1); Sodium 144 mMol/L (136-145); eGFR > 60 See Note
[2025-01-09 07:32] VITALS: BP 112/69; PULSE 74; RESP 16; TEMP 36.4; O2SAT 98
[2025-01-09 11:38] VITALS: BP 121/65; PULSE 70; RESP 16; TEMP 36.4; O2SAT 98
--- NOTE | 2025-01-09 11:53 | ESDS_ITS ---
<Statement entered by Rhina Donnelly DO - 01/10/25 07:38> I, Rhina Donnelly DO, attest that I was physically present for the hernandez portions of the service and evaluated the patient with the resident and I reviewed and discussed the case with the resident and agree with the resident's findings and plans of care as documented above <Statement entered by Floyd Shepard MD - 01/09/25 17:12> Note reviewed and agree with care plan as documented. Please refer to the note below for further details. Plan discussed with attending physician Dr. Cony Shepard MD PGY-2 Internal Medicine Planned Discharge Date 01/09/25 DS: Providers Provider Date of admission: 01/08/25 03:12 Primary care physician: Kaden Le MD Admitting Provider: Angeles Means MD Attending Provider on Admission: Angeles Means MD Attending Provider on DC: Rhina Donnelly DO Discharging Provider: Waylon Huntley DO DS: Diagnosis Problem List Completed Was Problem List Reviewed/Reconciled?: Yes Hospital Course Hospital Course Hospital course: 74-year-old female with PMHx of HTN, tachycardia, HLD, osteoporosis, chronic anemia, severe endometriosis s/p oophorectomy and hysterectomy, presented to ED on 01/07/2025 with abdominal pain, distention, nonbloody emesis, and diarrhea for the previous 2 days. Admitted for SBO, as evident on initial CTAP.? On hospital day 1 (01/08) small bowel series showed contrast present in the colon on the 1 hour film indicating resolution of SBO.? NGT was discharged, patient was offered liquid diet for lunch, full liquid for dinner, and dysphagia 2 (mechanically altered) for the following morning with close observation of symptoms.? Despite reported completion of nitrofurantoin ABX treatment for previous UTI, patient continued to have occasional dysuria with urgency.? New urine culture ordered. Later on the same day, patient had a large bowel movement yellow-greenish colored. By the following day, abdominal pain had completely resolved and patient was tolerating intake well without nausea or vomiting. Still pending urine cultures. If positive for growth, antibiotic meds will be sent out as new prescription. At the time of discharge, patient is medically stable and deemed safe to return to his/her previous state of living. Admission diagnosis: #Intractable N/V/B/abdominal pain #Small bowel obstruction, resolved #HTN #Tachycardia #HLD #Chronic anemia #Complicated UTI #CKD stage IIIa Discharge Instructions: * Follow-up with PCP within 1-2 weeks of discharge. * You may follow-up with one of our residents doctor with the [facility] at the address below. * Continue taking medications as prescribed below. * Still pending urine cultures. If positive for growth, antibiotic meds will be sent out as new prescription. * Return to Emergency Room if symptoms persist, worsen, or new symptoms develop. This case was discussed with my attending physician, Dr. Donnelly, and senior resident, Dr Drea Gifford. Waylon Huntley, DO PGY I Status at Discharge Cognitive/behavioral status at discharge: stable Functional status at discharge: independent ambulation Overall status at discharge: patient is back to baseline Time Spent with Patient Time attestation: Total time spent providing and/or coordinating discharge services: 50% of the patient's total hospital stay time Time spent: Greater than 30 minutes Exam Vital Signs Temp Pulse Resp BP Pulse Ox O2 Del Method 97.6 F 70 16 121/65 98 Room Air 01/09/25 11:38 01/09/25 11:38 01/09/25 11:38 01/09/25 11:38 01/09/25 11:38 01/09/25 11:38 Narrative Exam GENERAL * Normal appearing female, in mild distress secondary to nausea and vomiting. HEENT * NCAT. DIMAS. Oral mucosa is moist. Patent Nares NECK * Supple, nontender, no JVD. CHEST * RRR, no m/g/r * CTAB, no w/r/r, symmetrical expansion. ABDOMEN * Soft, non distended, non tender. * No guarding/rebound tenderness/masses. * Bowel sounds presents EXTREMITIES * No edema/cyanosis.? SKIN * Warm and dry, no jaundice/rashes. NEUROMUSCULAR * No lumbar or midline, no CVA, no paraspinal muscle spasm or tenderness. * Moves all 4 extremities well, with full ROM and good CSM. * GARCIA x4, CN II-XII grossly intact. * No focal neurologic deficits. PSYCHIATRY * Normal mood and affect, cooperative, no SI or HI or hallucinations Discharge Plan Plan Patient Disposition: HOME (Self Care) Patient condition on transfer: Stable Care Plan Goals: * Follow-up with PCP within 1-2 weeks of discharge. * You may follow-up with one of our residents doctor with the [facility] at the address below. * Continue taking medications as prescribed below. * Still pending urine cultures. If positive for growth, antibiotic meds will be sent out as new prescription. * Return to Emergency Room if symptoms persist, worsen, or new symptoms develop. [facility] [address] [place] [address] Prescriptions/Referrals Prescriptions/Med Rec: Continued lisinopril-hydrochlorothiazide 20-12.5 mg tablet 1 tab PO DAILY simvastatin 20 mg tablet 20 mg PO DAILY Patient Comments: TAKE 1 TABLET BY MOUTH EVERY EVENING metoprolol tartrate 25 mg tablet 25 mg PO DAILY Patient Comments: TAKE 1 TABLET BY MOUTH ONCE DAILY WITH FOOD Referrals: Kaden Le MD [Primary Care Provider, Family Practice] Patient/Caregiver Discharge Instructions Education Materials: Understanding Urinary Tract ..., When to Use Antibiotics Print Language: Azeri Stand Alone Forms: [employer] Award Info., Patient Portal Info Letter Discharge Order Discharge Orders: Discharge (Routine); Ordered 01/09/25 Ordered By: Floyd Shepard Quality Discharge Quality Measures VTE prophylaxis
== END 2025-01-09 13:02 | disposition home or self-care (01) ==
LOC: SERX 01-08 00:19 → S3SX 01-09 06:31 → SERHOLD 01-09 12:52 → S3SX 01-09 12:53
PROVIDERS: Nurse Practitioner Family; Admitting Provider Student in an Organized Health Care Education/Training Program; Emergency Provider Emergency Medicine; PCP Family Medicine; Visit Provider Student in an Organized Health Care Education/Training Program
DX: K56.609 Unspecified intestinal obstruction, unspecified as to partial versus complete obstruction (principal); E78.5 Hyperlipidemia, unspecified; M81.0 Age-related osteoporosis without current pathological fracture; I12.9 Hypertensive chronic kidney disease with stage 1 through stage 4 chronic kidney disease, or unspecified chronic kidney disease; N18.31 Chronic kidney disease, stage 3a; D63.1 Anemia in chronic kidney disease; R00.0 Tachycardia, unspecified; N39.0 Urinary tract infection, site not specified
CPT/HCPCS: 36415; 74176; 74250; 80048; 80053; 81001; 82150; 83735; 84100; 85025; 87086; 94640; 96372; 96374; 96375; 96376; 99284; A4649; G0378; J0696; J1644; J2270; J2405; J2470; J7030; J7042